=== PATIENT | female | born 1985 | race Caucasian/White ===

== ENCOUNTER 2017-05-02 18:26 | Emergency (ER) | payer SELFPAY ==
[2017-05-02 18:32] VITALS: BMI 27.1
--- NOTE | 2017-05-02 19:13 | C.PDOC ---
History Of Present Illness 32 y/o female presents to ED with complaints of left ankle pain. Patient states 3 hours [employer] she was walking down the stairs and tripped twisting her left ankle. Patient states she is currently unable to bear weight. Patient denies loc , other injuries or any other complaints at this time. Time Seen by Provider: 05/02/17 18:59 Chief Complaint (Nursing): Lower Extremity Problem/Injury History Per: Patient History/Exam Limitations: no limitations Onset/Duration Of Symptoms: Hrs Current Symptoms Are (Timing): Still Present - Hip Description Of Injury: Tripped Currently Unable To: Bear Weight Past Medical History Reviewed: Historical Data, Nursing Documentation, Vital Signs Vital Signs: Last Vital Signs Temp 98.4 F 05/02/17 20:03 Pulse 98 H 05/02/17 20:03 Resp 18 05/02/17 20:03 BP 103/67 05/02/17 20:03 Pulse Ox 99 05/02/17 20:20 - Medical History PMH: Depression Family History: States: No Known Family Hx - Social History Hx Tobacco Use: No Hx Alcohol Use: No Hx Substance Use: No - Immunization History Hx Tetanus Toxoid Vaccination: No Hx Influenza Vaccination: No Hx Pneumococcal Vaccination: No Review Of Systems Except As Marked, All Systems Reviewed And Found Negative. Constitutional: Negative for: Weakness Eyes: Negative for: Vision Change Musculoskeletal: Positive for: Foot Pain Skin: Negative for: Rash Neurological: Negative for: Weakness, Numbness, Headache, Dizziness Physical Exam - Physical Exam Appears: Non-toxic, No Acute Distress Skin: Normal Color, Warm Head: Atraumatic, Normacephalic Eye(s): bilateral: Normal Inspection Oral Mucosa: Moist Extremity: Capillary Refill (<2 seconds), No Deformity, Swelling (To inferior aspect of lateral malleolus and left mid plantar foot) Pulses: Left Dorsalis Pedis: Normal, Right Dorsalis Pedis: Normal Neurological/Psych: Oriented x3, Normal Motor, Normal Sensation Gait: Steady ED Course And Treatment O2 Sat by Pulse Oximetry: 99 Medical Decision Making Medical Decision Making: aknle and foot xray are negative. Patient was placed in ankle stirrup and instructed in crutch walking. Disposition - Disposition Referrals: Jacqueline Estevez MD [Staff Provider] - Disposition: HOME/ ROUTINE Disposition Time: 20:19 Condition: GOOD Additional Instructions: Follow up with the medical doctor within 1-2 days. Return if worsened Prescriptions: Acetaminophen [Tylenol] 325 mg PO Q6 PRN #30 tab PRN Reason: Pain, Mild (1-3) Instructions: Ankle Sprain (ED) - Clinical Impression Clinical Impression: Ankle sprain - Scribe Statement The provider has reviewed the documentation as recorded by the Nazibyelitza Vivas All medical record entries made by the Nazibyelitza were at my direction and personally dictated by me. I have reviewed the chart and agree that the record accurately reflects my personal performance of the history, physical exam, medical decision making, and the department course for this patient. I have also personally directed, reviewed, and agree with the discharge instructions and disposition.
[2017-05-02 20:03] VITALS: BP 103/67; PULSE 98; RESP 18; TEMP 98.4
[2017-05-02 20:20] VITALS: O2SAT 99
--- NOTE | 2017-05-03 10:32 | RAD ---
PROCEDURE: Left Foot Radiographs. HISTORY: foot injury and twisted ankle COMPARISON: None available. FINDINGS: BONES: No acute displaced fracture. JOINTS: No dislocation. SOFT TISSUES: Unremarkable. No evidence of radiopaque foreign body. OTHER FINDINGS: None. IMPRESSION: No acute displaced fracture, dislocation, or significant joint effusion identified. If symptoms persist, or if there is continued clinical concern, x-ray follow-up in 7-10 days should be considered.
--- NOTE | 2017-05-03 10:39 | RAD ---
PROCEDURE: Left Ankle Radiographs. HISTORY: ankle injury and pain COMPARISON: None FINDINGS: BONES: No acute displaced fracture. JOINTS: No dislocation. SOFT TISSUES: Soft tissue swelling. No evidence of radiopaque foreign body. OTHER FINDINGS: None. IMPRESSION: Soft tissue swelling. No acute displaced fracture or dislocation identified. If symptoms persist or if there is clinical concern, x-ray follow-up in 7-10 days should be considered.
== END 2017-05-02 20:26 | disposition home or self-care (01) ==
LOC: C.ER 18:26
DX: S93.402A Sprain of unspecified ligament of left ankle, initial encounter (principal); W10.9XXA Fall (on) (from) unspecified stairs and steps, initial encounter